=== PATIENT | male | born 1960 | race Hispanic/Latino ===

== ENCOUNTER 2018-07-19 05:53 | Day surgery (SDC) | payer OTHER ==
[2018-07-19] MEDS ORDERED: WATER FOR IRRIG STERILE ONE (06:32)
[2018-07-19] MEDS ORDERED: WATER FOR IRRIG STERILE IR ONE (06:32)
[2018-07-19] MEDS ORDERED: NACL 0.9% 1000 ML 1,000 ML IV SCH (07:00)
--- NOTE | 2018-07-19 07:31 | Anesthesia Day of Surgery ---
Anesthesia Day of Surgery - Day of Surgery Patient Examined: Yes Patient H&P Reviewed: Yes Patient is NPO: Yes
--- NOTE | 2018-07-19 07:33 | Anesthesia Consultation ---
Anesthesia Consult and Med Hx Date of service: 07/19/18 - Airway Anesthetic Teeth Evaluation: Good ROM Head & Neck: Adequate Mental/Hyoid Distance: Adequate Mallampati Class: Class II Intubation Access Assessment: Probably Good - Pre-Operative Health Status ASA Pre-Surgery Classification: ASA3 - Pulmonary Hx Smoking: Yes - Cardiovascular System Hx Hypertension: Yes (high cholesterol) Hx Heart Attack/AMI: Yes (stents x2. 12/2016) - Central Nervous System Hx Psychiatric Problems: No - Endocrine Hx Renal Disease: No Hx Liver Disease: No - Other Systems Hx Alcohol Use: No
[2018-07-19] MEDS ORDERED: XYLOCAINE 1% 20 mL ONE (07:36)
[2018-07-19] MEDS ORDERED: DIPRIVAN 10 MG/ML IV ONE ×2 (07:36)
[2018-07-19] MEDS ORDERED: VERSED ONE (07:36)
--- NOTE | 2018-07-19 08:16 | Short Stay Summary ---
Short Stay Documentation - Allergies and Medications Current Medications: Allergies Sulfa (Sulfonamide Antibiotics) Allergy (Mild, Verified 07/18/18 14:32) Unknown Home Medications Medication Instructions Recorded Confirmed Last Taken Type Adult Low Dose Aspirin EC 81 mg PO DAILY 07/18/18 07/19/18 07/17/18 History Lipitor 40 mg PO DAILY 07/18/18 07/19/18 07/17/18 History Toprol Xl 1 tab PO DAILY 07/18/18 07/19/18 07/17/18 History Active Medications Sodium Chloride (Nacl 0.9% 1000 Ml) 1,000 mls @ 50 mls/hr IV DIRECT PEGGY Last Admin: 07/19/18 06:32 Dose: 50 mls/hr Documented by: - Brief post op/procedure progress note Date of procedure: 07/19/18 Pre-op diagnosis: Colon cancer screening Post-op diagnosis: same (1. Internal hemorrhoids 2. Hypertrophied anal papillae 3. poor prep) Procedure: Colonoscopy Anesthesia: MAC Findings: as above Surgeon: LLOYD DOOLEY Estimated blood loss: none Pathology: none Condition: stable - Disposition Condition at discharge: Stable Short Stay Discharge Plan Activity: no restrictions Weight Bearing Status: Full Weight Bearing Diet: regular, low salt Follow up with: PRIMARY CAREMD [Primary Care Provider] - 7 Days
[2018-07-19 08:48] VITALS: BP 108/64
== END 2018-07-19 05:54 | disposition home or self-care (01) ==
LOC: GIO 05:53
PROVIDERS: ATTEND Internal Medicine Gastroenterology
DX: Z12.11 Encounter for screening for malignant neoplasm of colon (principal); D37.5 Neoplasm of uncertain behavior of rectum; K64.0 First degree hemorrhoids; K62.89 Other specified diseases of anus and rectum; F17.210 Nicotine dependence, cigarettes, uncomplicated; I25.2 Old myocardial infarction; E78.00 Pure hypercholesterolemia, unspecified; I10 Essential (primary) hypertension; Z88.2 Allergy status to sulfonamides; Z79.899 Other long term (current) drug therapy
CPT/HCPCS: 45378; J2250; J2704; J7030